=== PATIENT | female | born 1985 | race Caucasian/White ===

== ENCOUNTER 2020-05-22 10:01 | Inpatient (IN) | payer OTHER, SELFPAY ==
[2020-05-22] VITALS (71 sets, daily range): BP systolic 97–139; BP diastolic 46–102; PULSE 50–86; RESP 14–19; TEMP 36.1–37.3; O2SAT 98–100; BMI 30.2
--- NOTE | 2020-05-22 10:01 | LDADM ---
This patient, Stephanie Adamson, was admitted to Labor/Delivery/Recovery 120 on 05/22/20 at 10:01. Plans for section, pain management and were discussed with patient. Patient/family oriented to hospital policies and general routines including ID bracelet, bed and alarms, visiting hours, pain management, procedures, bathroom and other care routines, personal items, smoking policy, room service/diet and guest tray routines, security routines, and visiting hours. Patient/Family are encouraged to report perceived risks to care and to ask questions if they do not understand what they are told or what they should do. See OBIX for further documentation.
[2020-05-22] MEDS: LACTATED RINGERS 1,000 ML 125 ML IV CONT ×2 (10:50→13:27)
[2020-05-22 10:57] LABS: Basophils Absolute Auto 0.1 K/mm3 (0.0-0.1); Basophils Percent Auto 0.6 % (0.2-1.2); Eosinophils Absolute Auto 0.1 K/mm3 (0-0.3); Hematocrit 38.1 % (37.0-47.0); Hemoglobin 12.7 g/dL (12.0-15.0); Immature Granulocyte Absolute 0.11 K/mm3 (0.00-0.031); Immature Granulocyte Percent A 1.2 % (0-0.5); Lymphocytes Absolute Auto 1.61 K/mm3 (0.9-3.2); Lymphocytes Percent Auto 17.2 % (18.3-44.2); Mean Corpuscular HGB Conc 33.3 g/dl (32-36); Mean Corpuscular Hemoglobin 32.6 pg (26-34); Mean Corpuscular Volume 97.9 fl (80-100); Mean Platelet Volume 9.5 fl (7.4-10.4); Monocytes Absolute Auto 0.7 K/mm3 (0.1-0.6); Monocytes Percent Auto 7.7 % (2.6-8.5); Neutrophils Absolute Auto 6.8 K/mm3 (1.3-6.7); Neutrophils Percent Auto 72.3 % (45.5-73.1); Platelet Count Result 301 k/mm3 (150-375); Red Blood Count 3.89 M/mm3 (4.2-5.4); Red Cell Distribution Width 14.4 % (11.5-14.5); White Blood Count 9.4 K/mm3 (4.5-10.0)
--- NOTE | 2020-05-22 11:20 | WPDANESEPPF ---
Anes - Initial Pre Proc Eval Procedure: Operation Date: 05/22/20 12:00 Proposed Procedures p Primary Section - Alen Vela MD Date/Time: 05/22/20 11:20 Surgeon: Alen Vela MD Pre Op Diagnosis: Section Patient Data Age: 34 Gender: F Height: Weight: Last Vital Signs Pulse 75 05/22/20 11:00 BP 122/76 05/22/20 11:00 Allergies Allergy/AdvReac Type Severity Reaction Status Date / Time No Known Allergies Allergy Verified 04/21/20 15:45 Home Medications Medication Instructions Recorded Confirmed Type ferrous sulfate 325 mg PO DAILY 04/21/20 05/22/20 History prenat.vits,dorcas,[id number] 1 tablet PO DAILY 04/21/20 05/22/20 History [ #2] Laboratory Tests 05/22/20 05/22/20 10:43 10:43 WBC 9.4 K/mm3 K/mm3 (4.5-10.0) RBC 3.89 M/mm3 L M/mm3 (4.2-5.4) Hgb 12.7 g/dL g/dL (12.0-15.0) Hct 38.1 % % (37.0-47.0) MCV 97.9 fl fl (80-100) MCH 32.6 pg pg (26-34) MCHC 33.3 g/dl g/dl (32-36) RDW 14.4 % % (11.5-14.5) Plt Count 301 k/mm3 k/mm3 (150-375) MPV 9.5 fl fl (7.4-10.4) Immature Gran % (Auto) 1.2 % H % (0-0.5) Neut % (Auto) 72.3 % % (45.5-73.1) Lymph % (Auto) 17.2 % L % (18.3-44.2) [place] % (Auto) 7.7 % % (2.6-8.5) Eos % (Auto) 1.0 % % (0-4.4) Baso % (Auto) 0.6 % % (0.2-1.2) Lymph # (Auto) 1.61 K/mm3 K/mm3 (0.9-3.2) [place] # (Auto) 0.7 K/mm3 H K/mm3 (0.1-0.6) Eos # (Auto) 0.1 K/mm3 K/mm3 (0-0.3) Baso # (Auto) 0.1 K/mm3 K/mm3 (0.0-0.1) Abs Immat Gran (auto) 0.11 K/mm3 H K/mm3 (0.00-0.031) Absolute Neuts (auto) 6.8 K/mm3 H K/mm3 (1.3-6.7) Absolute Nucleated RBC 0.0 K/mm3 K/mm3 (0.0-0.012) Nucleated RBC % 0.0 % % (0.0-0.2) RPR Pending Patient hx anesthesia problems: none Family hx anesthesia problems: none [facility] Surgical History Surgical History (Updated 05/22/20 @ 11:21 by Mateo Quevedo MD) H/O breast augmentation History of appendectomy Family History Family History Mother Patient's mother is in good health Family history of thyroid disease Grandparent Family history of malignant neoplasm of breast Family history of malignant neoplasm of breast in first degree relative, Onset Age: 80 Family history of thyroid disease Social History Social History Smoking status: Former smoker Tobacco type: cigarettes Second hand tobacco smoke exposure: No Smoking end date: 02/17/05 Alcohol intake: never Substance use: never Spiritual care concerns: No Anes - Eval Final PreProcedure Day of Procedure 05/22/20 11:20 Patient weight: overweight Heart: regular rate and rhythm Lungs: clear to auscultation Airway: Mallampati scale class II Neurological: alert and oriented Last oral intake: >/= 8 hours ASA classification: II Emergent: no Anesthetic plan: proceed Anesthesia type and monitoring: regional spinal and standard monitoring Informed Consent: The patient's anesthetic plan and its attendant risks and benefits were discussed with the patient/family/POA. Questions were solicited and answers provided to the satisfaction of the patient/family/POA.
--- NOTE | 2020-05-22 12:23 | WPDHPUPDATE1 ---
History and Physical Update Update Date/Time: 05/22/20 12:23 History and Physical has been reviewed, including an updated exam of the patient. There are NO changes in the patient's condition. Risks, benefits, and alternatives have been discussed and questions answered. Patient agrees to proceed with procedure.
--- NOTE | 2020-05-22 12:23 | PM.IMHP ---
H&P: HPI History of Present Illness Date/Time: 05/22/20 12:23 this patient is a 34-year-old female presents for delivery. She has a term and breech position. She has no complaints. She denies any contractions, loss of fluid, vaginal bleeding. She denies any headache, blurry vision, epigastric pain. She denies any chest pain or shortness of breath she denies any nausea, vomiting, fever, chills. Chief Complaint: Term , breech Review of Systems Constitutional: Constitutional: Reports no additional constitutional complaints, Denies fatigue, Denies headache(s), Denies lethargy and Denies weakness Eyes: Eyes: Reports no additional eye complaints, Denies blurry vision and Denies photophobia ENT: Reports as per HPI, Denies headache(s) and Denies neck pain Cardiovascular: Cardiovascular: Denies chest pain, Denies diaphoresis, Denies leg edema, Denies palpitations and Denies dyspnea Respiratory: Respiratory: Denies hemoptysis, Denies dyspnea and Denies wheezing Gastrointestinal: Gastrointestinal: Denies abdominal pain, Denies melena, Denies bloating, Denies hematochezia, Denies nausea and Denies vomiting Genitourinary: Genitourinary: Reports no additional female genitourinary complaints Musculoskeletal: Musculoskeletal: Denies joint swelling, Denies neck pain, Denies numbness and Denies stiffness Neurologic: Denies Abnormal speech present, Denies confusion, Denies headache(s), Denies numbness and Denies weakness Psychiatric: Psychiatric: Denies anxiety, Denies confusion, Denies depression, Denies homicidal ideation and Denies suicidal ideation Endocrine: Endocrine: Denies fatigue and Denies palpitations Allergic/Immunologic: Allergic/Immunologic: Denies wheezing [facility] Surgical History Surgical History (Updated 05/22/20 @ 11:21 by Mateo Quevedo MD) H/O breast augmentation History of appendectomy Family History Family History Mother Patient's mother is in good health Family history of thyroid disease Grandparent Family history of malignant neoplasm of breast Family history of malignant neoplasm of breast in first degree relative, Onset Age: 80 Family history of thyroid disease Social History Social History Smoking status: Former smoker Tobacco type: cigarettes Second hand tobacco smoke exposure: No Smoking end date: 02/17/05 Alcohol intake: never Substance use: never Spiritual care concerns: No Meds Home Medications and Allergies Home Medications Medication Instructions Recorded Confirmed Type ferrous sulfate 325 mg PO DAILY 04/21/20 05/22/20 History prenat.vits,dorcas,qwd-rmhh-mdoft 1 tablet PO DAILY 04/21/20 05/22/20 History [ #2] Allergies Allergy/AdvReac Type Severity Reaction Status Date / Time No Known Allergies Allergy Verified 04/21/20 15:45 Vital Signs Vital Signs - 24 hr 05/22/20 10:50 05/22/20 11:00 Temperature 99.1 F Pulse Rate 83 75 Respiratory Rate 18 Blood Pressure 126/70 122/76 Exam Const: General: healthy appearing, comfortable and no acute distress; No confusion Orientation/consciousness: No confusion Eyes: Direct Ophthalmoscopy: No photophobia Resp: Auscultation: clear to auscultation bilaterally, no rales, no rhonchi and no wheezes Cardio: Rate: regular rate Heart sounds: no click, no murmurs and no rubs GI: Inspection: non-distended GI Palp: No abdominal tenderness Auscultation: normal bowel sounds Neuro: General: No confusion Speech: No Abnormal speech present Extrem: General: normal to inspection, no pedal edema and no calf tenderness H&P: Results Labs Labs: Short CBC 05/22/20 Range/Units 10:43 WBC 9.4 (4.5-10.0) K/mm3 Hgb 12.7 (12.0-15.0) g/dL Hct 38.1 (37.0-47.0) % Plt Count 301 (150-375) k/mm3 Assessment and Plan Assessment and plan (1) Term pregn
--- NOTE | 2020-05-22 13:23 | PM.PROC ---
Procedure Note - Detailed Date of procedure: 05/22/20 Pre-op diagnosis: Section Unwanted fertility Post-op diagnosis: same Procedure performed: Repeat low-transverse delivery, tubal ligation/fimbriectomy/fimbriectomy. Description of procedure: The patient was taken the operating room. She was prepped and draped in the dorsal supine position with leftward tilt after induction of spinal anesthetic. When anesthesia was found to be adequate a low-transverse skin incision was made and carried down to the level the fascia with the knife. The fascial incision was made at the midline with a scalpel. The fascial incision was extended laterally with Parra scissors. The fascia was tented upward superior and inferior with Addis clamps. The rectus muscles were dissected off bluntly. The rectus muscles at the midline. The preperitoneal fat was dissected bluntly at the superior aspect of the separate the rectus muscles. The peritoneal cavity was entered bluntly in the same area. The peritoneal incision was extended superior and inferior with good position of bladder. Bladder blade was inserted. A low-transverse incision was made on the uterus with the scalpel. It was carried down the level of the amniotic cavity with a knife. The amniotic cavity bluntly. The uterine incision was made laterally with blunt traction. The was delivered. The cord was clamped and cut. The infant was handed off to waiting pediatric staff. Cord bloods were obtained. The placenta was removed manually. The uterus was exteriorized. Uterus cleared of all clots and debris. Uterus closed in 0 Vicryl in a running locked fashion. An imbricating layer of 0 Vicryl was also placed on the to bolster the closure. Fallopian tube was grasped in the ampullary region with a Emily. It was raised away from the accompanying vein. A window was created in the broad ligament in this area of the tube. 0 Vicryl was used to ligate the proximal distal ends of the skeletonize region of the tube. The segment of the tube was resected with scissors. The cut surfaces were cauterized. The distal half of the tube was then removed using clamps and 0 Vicryl ties. On the contralateral side the procedure was performed identically. The uterus was returned to the abdomen. The gutters were cleared of all clots and debris. The fascia was closed 0 Vicryl in a running fashion. Subcutaneous tissue was irrigated and bleeding areas were cauterized. The skin was closed with subcuticular for Monocryl. The incision was covered with derma fox. The patient tolerated the procedure well. She was taken recovery room stable condition. Sponge, lap, needle counts were correct x2. Anesthesia: spinal Surgeon: Alen Vela MD Estimated blood loss (mL): 210 Drains: No Packing: No Pathology: none sent Complications: No immediate complications Condition: stable Disposition: floor Findings: Normal maternal anatomy. Average size infant with normal Apgars.
[2020-05-22] MEDS: OXYTOCIN 30 UNITS/NS 500 ML 30 UNITS/500 ML BAG 125 UNITS IV CONT (14:37)
[2020-05-22] MEDS: fentaNYL CITRATE INJ (*CRX) 100 MCG/2 ML VIAL 25 MCG IV PUSH (15:26)
--- NOTE | 2020-05-22 16:00 | OBPPTRN ---
Patient transferred to post room # 286 via stretcher. Support person present. Oriented to unit, room, information board, rooming in, admission packet and security measures. Patient verbalizes understanding.
--- NOTE | 2020-05-22 16:00 | PC.NURSE ---
Patient transferred to room. Report given to Sandy Nogueira RN.
[2020-05-22] MEDS: KETOROLAC 30 MG/ML VIAL (*BKC) IV PUSH (16:48)
[2020-05-22] MEDS: IBUPROFEN 600 MG TABLET PO (22:16)
[2020-05-22] MEDS: HYDROcodone/acetaminophen (*CRX) 5-325 MG TABLET 1 TAB PO (22:17)
[2020-05-23] MEDS: HYDROcodone/acetaminophen (*CRX) 5-325 MG TABLET 1 TAB PO ×2 (00:04→11:47)
[2020-05-23] MEDS: SIMETHICONE 80 MG TAB.CHEW PO ×5 (05:17→21:22)
[2020-05-23] MEDS: HYDROcodone/acetaminophen (*CRX) 10-325 MG TABLET 1 TAB PO ×4 (05:17→21:22)
[2020-05-23] MEDS: IBUPROFEN 600 MG TABLET PO ×3 (05:18→16:57)
[2020-05-23 05:30] VITALS: BP 106/74; PULSE 65; RESP 16; TEMP 36.7
[2020-05-23 05:51] LABS: Basophils Absolute Auto 0.1 K/mm3 (0.0-0.1); Basophils Percent Auto 0.5 % (0.2-1.2); Eosinophils Absolute Auto 0.1 K/mm3 (0-0.3); Eosinophils Percent Auto 0.9 % (0-4.4); Hematocrit 34.9 % (37.0-47.0); Hemoglobin 11.2 g/dL (12.0-15.0); Immature Granulocyte Absolute 0.08 K/mm3 (0.00-0.031); Immature Granulocyte Percent A 0.7 % (0-0.5); Lymphocytes Absolute Auto 1.67 K/mm3 (0.9-3.2); Lymphocytes Percent Auto 15.2 % (18.3-44.2); Mean Corpuscular HGB Conc 32.1 g/dl (32-36); Mean Corpuscular Hemoglobin 31.5 pg (26-34); Mean Corpuscular Volume 98.3 fl (80-100); Mean Platelet Volume 9.9 fl (7.4-10.4); Monocytes Absolute Auto 0.6 K/mm3 (0.1-0.6); Monocytes Percent Auto 5.5 % (2.6-8.5); Neutrophils Absolute Auto 8.5 K/mm3 (1.3-6.7); Neutrophils Percent Auto 77.2 % (45.5-73.1); Platelet Count Result 263 k/mm3 (150-375); Red Blood Count 3.55 M/mm3 (4.2-5.4); Red Cell Distribution Width 14.2 % (11.5-14.5)
--- NOTE | 2020-05-23 07:35 | WPDANLDPN2 ---
Anes-Prog Note L&D Date/Time: 05/23/20 07:35 Comfortable throughout: section Neuraxial method: spinal Epidural/Spinal procedure site: clean & non-tender Neuro status: Neuro function grossly intact. Cardiovascular status: normal Respiratory status: normal Airway patency: baseline Mental status: baseline Post-Op hydration status: normal Vital Signs: Last Vital Signs Temp 36.7 C 05/23/20 05:30 Pulse 65 05/23/20 05:30 Resp 16 05/23/20 05:30 BP 106/74 05/23/20 05:30 Pulse Ox 100 05/22/20 15:58 Pain score (VAS): 3 I/O: Intake & Output 05/22/20 05/22/20 05/23/20 15:59 23:59 07:59 Intake Total 5698 326 9858 Output Total 903 529 6108 Balance 623 120 -1200 Post-procedural complaints: none Patient feedback: Patient satisfied with anesthetic care.
--- NOTE | 2020-05-23 07:35 | WPDANLDNPN2 ---
Anes-Prog Note L&D-Neuraxial Date/Time: 05/23/20 07:35 Neuraxial medications: intrathecal PF morphine Opiod-related complaints: none Patient feedback: Patient satisfied with post-operative pain management.
--- NOTE | 2020-05-23 07:50 | PM.OBPNVD ---
OB - PN: Subj Subjective Date/time seen: 05/23/20 07:50 Patient comments: no complaints, pain well controlled, tolerating diet and flatus present [place] baby status: doing well OB - PN: Obj Data Labs CBC & Chem 7: 05/23/20 05:26 Labs: Laboratory Results - last 24 hr 05/22/20 05/22/20 05/23/20 10:43 10:43 05:26 WBC 9.4 11.0 H RBC 3.89 L 3.55 L Hgb 12.7 11.2 L Hct 38.1 34.9 L MCV 97.9 98.3 MCH 32.6 31.5 MCHC 33.3 32.1 RDW 14.4 14.2 Plt Count 301 263 MPV 9.5 9.9 Immature Gran % (Auto) 1.2 H 0.7 H Neut % (Auto) 72.3 77.2 H Lymph % (Auto) 17.2 L 15.2 L [place] % (Auto) 7.7 5.5 Eos % (Auto) 1.0 0.9 Baso % (Auto) 0.6 0.5 Lymph # (Auto) 1.61 1.67 [place] # (Auto) 0.7 H 0.6 Eos # (Auto) 0.1 0.1 Baso # (Auto) 0.1 0.1 Abs Immat Gran (auto) 0.11 H 0.08 H Absolute Neuts (auto) 6.8 H 8.5 H Absolute Nucleated RBC 0.0 0.0 Nucleated RBC % 0.0 0.0 Blood Type A Positive Antibody Screen Negative OB - PN A/P Plan day: 1 Plan: routine care Time Spent With Patient Time: Total time spent is greater than 50% in coordination of care (as documented) at patient's floor/unit and/or counseling patient: Time with patient: less than 15 minutes Review of Systems Review of Systems: All systems reviewed & are unremarkable except as noted in HPI and below Exam Narrative: Exam Narrative: Fundus firm. Vaginal flow controlled. Incision dry and intact. Negative homans. No redness, warmth, or pain of lower ext. Const: General: comfortable Chest: Breast/axilla inspection: normal inspection of the breasts Resp: Effort & Inspection: normal respiratory effort Auscultation: clear to auscultation bilaterally Cardio: Rate: regular rate GI: GI Palp: Yes Soft to palpation Psych: Appearance: grossly normal Affect: normal affect Attitude: cooperative Thought content: Yes Normal thought content present Judgement: Good judgement present (Psych)
[2020-05-23 09:00] VITALS: BP 111/84; PULSE 85; RESP 18; TEMP 36.5
[2020-05-23] MEDS: DOCUSATE SODIUM 100 MG CAPSULE PO ×2 (09:01→16:58)
[2020-05-23 11:50] VITALS: BP 110/65; PULSE 67; PULSE 85; RESP 14; RESP 18; TEMP 36.7; O2SAT 100
[2020-05-23 13:55] LABS: Rapid Plasma Reagin Non-Reactive (NonReactive)
[2020-05-23 15:00] VITALS: BP 116/82; PULSE 84; RESP 18; TEMP 36.8
[2020-05-23 20:20] VITALS: BP 127/72; PULSE 75; PULSE 85; RESP 15; RESP 18; TEMP 36.8
[2020-05-24] MEDS: SIMETHICONE 80 MG TAB.CHEW PO ×2 (05:50→08:14)
[2020-05-24] MEDS: IBUPROFEN 600 MG TABLET PO ×2 (05:50→12:02)
--- NOTE | 2020-05-24 07:25 | PM.OBPNVD ---
OB - PN: Subj Subjective Date/time seen: 05/24/20 07:25 Patient comments: no complaints, pain well controlled, incisional pain, tolerating diet and flatus present OB - PN: Obj Data Labs CBC & Chem 7: 05/23/20 05:26 Labs: Laboratory Results - last 24 hr 05/22/20 10:43 RPR Non-reactive OB - PN A/P Plan day: 2 Plan: routine care Comments: POD#2 LTCS - no problems, to d/c Time Spent With Patient Time: Total time spent is greater than 50% in coordination of care (as documented) at patient's floor/unit and/or counseling patient: Exam Const: General: comfortable, no acute distress and alert Resp: Effort & Inspection: normal respiratory effort Auscultation: no crackles, no rales and no rhonchi Cardio: Rate: regular rate Heart sounds: no click, no murmurs and no rubs GI: Inspection: non-distended GI Palp: No Tenderness to palpation present (GI) Auscultation: normal bowel sounds Other: Incision - CDI Extrem: General: normal to inspection, no pedal edema and no calf tenderness
--- NOTE | 2020-05-24 07:26 | PM.OBDSVD ---
DS: Admitting Diagnosis Admitting Diagnosis Admitting Diagnosis: term , breech DS: Discharge Diagnosis Discharge Diagnosis (1) Term : Code(s): Z34.90 - Encounter for supervision of normal , unspecified, unspecified trimester Status: Acute (2) Breech presentation: Code(s): O32.1XX0 - Maternal care for breech presentation, not applicable or unspecified Status: Acute (3) delivery delivered: Code(s): O82 - Encounter for delivery without indication Status: Acute OB - DS: Summary OB Procedures : None OB Procedures Intrapartum: OB Procedures: : None Peripartum Data Delivery Method: Section Procedures: Procedures Operation Date: 05/22/20 12:00 Actual Procedures Side Surgeon p Section Not Applicable Alen Vela MD Time Spent with Patient Time attestation: Total time spent providing and/or coordinating discharge services: DS: Data Data Completed and Pending Pending studies at discharge: Pending at discharge 05/22/20 13:05 Surgical [PTH] Routine Labs on day of discharge: Labs from last 24 hours 05/22/20 10:43 RPR Non-reactive Discharge Plan Discharge Discharging Clinician: Alen Vela Patient Disposition: Home, Self-Care Activity: pelvic rest Diet: regular Patient Instructions: Antibiotic Form Stand Alone Forms: General Discharge Information Follow-up/Referrals: Alen Vela MD [Physician] - Discharge Medications: New hydrocodone-acetaminophen 5-325 mg tablet 1 - 2 tablet PO Q4H PRN (Reason: pain) Qty: 25 RF: 0 Continued ferrous sulfate 325 mg (65 mg iron) Tablet,Delayed Release (Dr/Ec) 325 mg PO DAILY RF: 0 #2 Tablet 1 tablet PO DAILY RF: 0 Date of admission: 05/22/20 10:01 Primary Care Provider: Ash,Marjan Rowell Admitting Provider: Alen Vela Attending physician on admission: Alen Vela Condition: Stable
[2020-05-24 08:00] VITALS: BP 107/69; PULSE 82; RESP 18; RESP 20; TEMP 37.1
[2020-05-24] MEDS: HYDROcodone/acetaminophen (*CRX) 10-325 MG TABLET 1 TAB PO (08:14)
[2020-05-24] MEDS: DOCUSATE SODIUM 100 MG CAPSULE PO (08:15)
--- NOTE | 2020-05-24 10:52 | PC.NURSE ---
Self care and infant care discharge instructions given to patient, including f/u visit date and time. Patient V/U. No concerns voiced. FOB at side.
--- NOTE | 2020-05-24 10:53 | PC.NURSE ---
Patient was given the opportunity to view the discharge video Mother & Baby Care, The First Two Weeks and to ask questions. Patient declined viewing the video and has been given the mother/baby guide for home reference.
[2020-05-24] MEDS: HYDROcodone/acetaminophen (*CRX) 5-325 MG TABLET 1 TAB PO (12:02)
[2020-05-26 11:18] VITALS: BP 131/77; PULSE 71; RESP 20; TEMP 36.9; O2SAT 100
== END 2020-05-24 12:10 | disposition home or self-care (01) | DRG 785 ==
LOC: ANHLDR 10:05 → ANHOB2 16:04
PROVIDERS: Admitting Provider Obstetrics & Gynecology; PCP Family Medicine; Visit Provider Obstetrics & Gynecology
PROC: 10D00Z1 Extraction of Products of Conception, Low, Open Approach (ICD-10-PCS; CPT 59514; principal; 2020-05-22 12:00)
DX: O32.1XX0 Maternal care for breech presentation, not applicable or unspecified (principal); Z37.0 Single live birth; Z3A.39 39 weeks gestation of pregnancy; Z30.2 Encounter for sterilization
CPT/HCPCS: 36415; 85025; 86592; 86850; 86900; 86901; 88302; A9270; J0131; J1885; J2274; J2590; J3010; J7120

== ENCOUNTER → 2020-07-18 14:01 | Outpatient (CLI) | payer OTHER, SELFPAY ==
--- NOTE | ~2020-07-18 | XR_ITS ---
XR wrist LT min 3V DATE: 07/18/2020 14:14 INDICATION: Left wrist pain, lateral lumpy TECHNIQUE: 4 views COMPARISON: None FINDINGS: There is focal soft tissue swelling at the lateral aspect of the wrist with nearby chronic mild scalloping of the lateral radial epiphyseal cortex. Findings suggest a long-standing benign soft tissue lesion. No fracture, dislocation, periosteal reaction or bone destruction. IMPRESSION: Lateral wrist soft tissue mass with adjacent chronic benign scalloping of the lateral rad ial metaphyseal cortex Reviewed, dictated and finalized at location A. IMPRESSION: Lateral wrist soft tissue mass with adjacent chronic benign scallop ing of the lateral radial metaphyseal cortex
== END ==
PROVIDERS: PCP Nurse Practitioner Family; Visit Provider Nurse Practitioner Family
DX: M79.89 Other specified soft tissue disorders (principal)
CPT/HCPCS: 73110

== ENCOUNTER → 2020-08-14 15:16 | Outpatient (REF) | payer OTHER, SELFPAY | LOC: ANHLAB 15:16 | PROVIDERS: PCP Family Medicine; Visit Provider Nurse Practitioner | DX: D22.5 Melanocytic nevi of trunk (principal); D22.62 Melanocytic nevi of left upper limb, including shoulder | CPT/HCPCS: 88305 ==

== ENCOUNTER 2022-01-25 08:00 | Outpatient (NON) | payer OTHER, SELFPAY | END 2022-01-25 08:01 | disposition home or self-care (01) | LOC: ANHLAB 01-28 10:05 | PROVIDERS: PCP Family Medicine; Visit Provider Surgery Plastic and Reconstructive Surgery | DX: Z45.819 Encounter for adjustment or removal of unspecified breast implant (principal) | CPT/HCPCS: 88304 ==

== ENCOUNTER 2022-01-25 09:04 | Day surgery (SDC) | payer OTHER, SELFPAY ==
[2022-01-18 13:09] VITALS: BMI 20.3
[2022-01-25] VITALS (7 sets, daily range): BP systolic 113–126; BP diastolic 74–83; PULSE 80–100; RESP 14–22; TEMP 37.1–37.3; O2SAT 100; BMI 20.1
--- NOTE | 2022-01-25 07:07 | WPDANESEPPF ---
Anes - Initial Pre Proc Eval Procedure: Operation Date: 01/25/22 10:30 Proposed Procedures p Bilateral Breast Implant Exchange - Aldo Montano MD Date/Time: 01/25/22 07:07 Surgeon: Aldo Montano MD Pre Op Diagnosis: History of Breast Augmentation Patient Data Age: 36 Gender: F Height: 1.6 m Weight: 52.163 kg Allergies Allergy/AdvReac Type Severity Reaction Status Date / Time No Known Allergies Allergy Verified 01/25/22 09:29 Patient hx anesthesia problems: none Family hx anesthesia problems: none Results Review: All pre-operative results and documents have been reviewed as part of the pre-operative evaluation. PMFSH Past Medical History Medical History (Updated 01/25/22 @ 07:07 by Claude Randle DO) Anemia Surgical History Surgical History (Updated 01/25/22 @ 07:07 by Claude Randle DO) H/O breast augmentation History of appendectomy History of tubal ligation Hx of section (~05/2020) Family History Family History Mother Patient's mother is in good health Family history of thyroid disease Grandparent Family history of malignant neoplasm of breast Family history of malignant neoplasm of breast in first degree relative, Onset Age: 80 Family history of thyroid disease Social History Social History Social History: , 2 children. part time flexible clerk replenishment specialist. Smoking status: Never smoker Tobacco type: cigarettes Second hand tobacco smoke exposure: No Smoking end date: 02/17/05 Alcohol intake: never Alcohol use details: socially Substance use: never Living arrangements: with family Spiritual care concerns: No Anes - Eval Final PreProcedure Day of Procedure 01/25/22 07:07 Patient weight: normal Heart: regular rate and rhythm Lungs: clear to auscultation and normal air movement Airway: Mallampati scale class II Neurological: alert and oriented Last oral intake: >/= 8 hours ASA classification: II Emergent: no Anesthetic plan: proceed Anesthesia type and monitoring: general LMA and standard monitoring Results Review: All pre-operative results and documents have been reviewed as part of the pre-operative evaluation. Informed Consent: The patient's anesthetic plan and its attendant risks and benefits were discussed with the patient/family/POA. Questions were solicited and answers provided to the satisfaction of the patient/family/POA.
[2022-01-25] MEDS: LACTATED RINGERS 1,000 ML 30 ML IV CONT (09:45)
--- NOTE | 2022-01-25 10:17 | SUR.PREOP ---
FEMALE STAFF IN ROOM WHILE MARKED PT. PT'S MOTHER AT BEDSIDE ALSO.
--- NOTE | 2022-01-25 10:22 | WPDHPUPDATE1 ---
History and Physical Update Update Date/Time: 01/25/22 10:22 History and Physical has been reviewed, including an updated exam of the patient. There are NO changes in the patient's condition. Risks, benefits, and alternatives have been discussed and questions answered. Patient agrees to proceed with procedure.
--- NOTE | 2022-01-25 10:22 | W.PM.PROC2 ---
Procedure Note - Detailed Date of Procedure 01/25/22 Pre-op Diagnosis History of Breast Augmentation Post-op Diagnosis Same Procedure Performed Bilateral implant exchange with adjustment of left fold and bilateral Galaflex Surgeon Aldo Montano MD Anesthesia General Findings Previous implants: HP-380 saline New implants bilateral Natrelle SoftTouch 420cc implants Right - REF# [id number]-[id number] SN [id number] Left - REF# [id number] SN [id number] Description of Procedure Preoperatively the risks, benefits, alternatives were discussed in extensive detail. I wanted to be very realistic about the risks involved as well as expectations. I was clear about how we could actually make her worse. 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 She understands this could recur. Answered all questions to satisfaction. Voiced a clear understanding. Consent obtained. She was taken the operating room placed supine on the operating room table. Anesthesia provided by anesthesiology and prepped and draped in a standard sterile fashion. Surgical time-out was taken. 1% lidocaine and 0.25% Marcaine with epinephrine was used to provide a field block. Tegaderm nipple pantoja were placed. Fifteen blade used to excise the previous IMF scars. Dissection was continued down until the capsules were identified and excised a significant portion of the capsule which was sent to pathology. I then copiously irrigated with 3 L of saline solution on TUR tubing. Verified strict hemostasis. Bilateral lateral and left inferior popcorn capsulorraphy was completed as needed for symmetry. I also closed along the left IMF with 2-0 Vicryl. I then irrigated with Betadine containing solution. Using a no-touch technique and a Burkett funnel the implant was introduced into the pocket. The Galaflex was soaking in Betadine solution on the back table. It was trimmed and placed along bilateral IMF. This was closed with 2-0 Vicryl followed by 3-0 Monocryl and a running subcuticular 4-0 Monocryl followed by tissue glue. Dressings were placed. She was woken taken to the PACU without difficulty. All instrument sponge counts were correct at the end of the case. Estimated Blood Loss 20 Drains No Packing No Pathology Yes (Bilateral breast capsules) Complications No immediate complications Condition Stable Disposition PACU
[2022-01-25] MEDS: ceFAZolin SODIUM 2 GM/20 ML SW SYRINGE IV PUSH (10:43)
[2022-01-25] MEDS: BUPIVACAINE HCL 0.25% 50 ML VIAL INFILTRATE (11:00)
[2022-01-25] MEDS: NACL 0.9% IRRIG POUR BOTTLE 900 ML, GENTAMICIN SULFATE INJ 160 MG, ceFAZolin 2 GM, POVI... IRRIGATION (11:11)
[2022-01-25] MEDS: LIDO 1%/EPINEPHRINE 1:100,000 20 ML VIAL 40 ML INFILTRATE (11:14)
[2022-01-25] MEDS: ONDANSETRON INJ 4 MG/2 ML VIAL IV PUSH (12:42)
--- NOTE | 2022-01-25 13:51 | WPDANESPN ---
Anes - Prog Note Post-Op Date/Time: 01/25/22 13:51 Vital Signs: Last Vital Signs Temp 37.1 C 01/25/22 12:13 Pulse 86 01/25/22 13:21 Resp 14 01/25/22 13:21 BP 116/81 01/25/22 13:21 Pulse Ox 100 01/25/22 13:21 O2 Del Method Room Air 01/25/22 13:21 O2 Flow Rate 5 01/25/22 12:13 Pain Score (VAS): 2 I/O: Intake & Output 01/24/22 01/25/22 01/25/22 23:59 07:59 15:59 Intake Total 100 Balance 100 Patient Feedback: Patient satisfied with anesthetic care.
== END 2022-01-25 13:51 | disposition home or self-care (01) ==
PROVIDERS: PCP Family Medicine; Visit Provider Surgery Plastic and Reconstructive Surgery
PROC: (CPT 19342; principal; 2022-01-25 10:30)
DX: Z41.1 Encounter for cosmetic surgery (principal)
CPT/HCPCS: 19342

== ENCOUNTER 2022-07-30 09:00 | Outpatient (NON) | payer OTHER, SELFPAY | END 2022-07-30 09:01 | disposition home or self-care (01) | LOC: ANHLAB 07-31 16:05 | PROVIDERS: PCP Family Medicine; Visit Provider Nurse Practitioner | DX: D49.2 Neoplasm of unspecified behavior of bone, soft tissue, and skin (principal) | CPT/HCPCS: 88305 ==

== ENCOUNTER 2023-09-05 08:32 | Outpatient (CLI) | payer OTHER, SELFPAY ==
[2023-09-05 18:43] LABS: Basophils Absolute Auto 0.1 K/mm3 (0.0-0.1); Basophils Percent Auto 1.6 % (0.2-1.2); Eosinophils Absolute Auto 0.2 K/mm3 (0-0.3); Eosinophils Percent Auto 3.5 % (0-4.4); Hematocrit 39.9 % (37.0-47.0); Hemoglobin 12.8 g/dL (12.0-15.0); Immature Granulocyte Absolute 0.01 K/mm3 (0.00-0.031); Immature Granulocyte Percent A 0.2 % (0-0.5); Lymphocytes Absolute Auto 1.61 K/mm3 (0.9-3.2); Lymphocytes Percent Auto 33.2 % (18.3-44.2); Mean Corpuscular HGB Conc 32.1 g/dl (32-36); Mean Corpuscular Hemoglobin 31.4 pg (26-34); Mean Platelet Volume 9.2 fl (7.4-10.4); Monocytes Absolute Auto 0.4 K/mm3 (0.1-0.6); Monocytes Percent Auto 8.7 % (2.6-8.5); Neutrophils Absolute Auto 2.6 K/mm3 (1.3-6.7); Neutrophils Percent Auto 52.8 % (45.5-73.1); Platelet Count Result 370 k/mm3 (150-375); Red Blood Count 4.07 M/mm3 (4.2-5.4); Red Cell Distribution Width 12.7 % (11.5-14.5); White Blood Count 4.9 K/mm3 (4.5-10.0)
[2023-09-05 19:05] LABS: Alanine Aminotransferase 16 U/L (6-35); Albumin Level 4.7 g/dL (3.5-5.1); Alkaline Phosphatase 36 U/L (38-126); Anion Gap 11 mmol/L (4-12); Aspartate Amino Transferase 31 U/L (14-36); Blood Urea Nitrogen 12 mg/dL (7-17); Calcium 9.2 mg/dL (8.4-10.2); Carbon Dioxide 26 mmol/L (22-30); Chloride 101 mmol/L (98-107); Cholesterol 162 mg/dL (0-200); Estimated Glomerular Filt Rate > 60; Glucose 81 mg/dL (65-110); HDL Direct 76 mg/dL; Potassium 3.9 mmol/L (3.4-5.0); Sodium 138 mmol/L (137-145); Triglycerides 47 mg/dL (<150)
[2023-09-05 19:17] LABS: LDL Cholesterol Direct 78 mg/dL
[2023-09-05 19:23] LABS: Hemoglobin A1C 5.4 % (<5.7)
[2023-09-05 19:46] LABS: Vitamin D 25 Hydroxy 33.5 ng/mL
== END 2023-09-05 08:33 | disposition home or self-care (01) ==
LOC: ANHGOSHLAB 08:33
PROVIDERS: PCP Family Medicine; Visit Provider Nurse Practitioner Family
DX: R73.03 Prediabetes (principal); Z00.00 Encounter for general adult medical examination without abnormal findings; E55.9 Vitamin D deficiency, unspecified; Z13.29 Encounter for screening for other suspected endocrine disorder; E53.8 Deficiency of other specified B group vitamins
CPT/HCPCS: 36415; 80053; 80061; 82306; 82607; 83036; 84443; 85025

== ENCOUNTER 2024-06-09 13:18 | Outpatient (CLI) | payer OTHER, SELFPAY ==
--- NOTE | ~2024-06-09 | MM_ITS ---
EXAMINATION: MM scrn chanell implant BI w mirlande HISTORY: Screening mammogram TECHNIQUE: Craniocaudal and mediolateral oblique 3-D tomosynthesis images with implant displacement a nd synthetic 2-D images were generated. Craniocaudal and mediolateral oblique views of the breasts wi thout implant displacement were obtained using full field digital mammography. CAD analysis was submi tted and interpreted. COMPARISON: No prior mammogram is available for comparison at this institution. BREAST PARENCHYMAL COMPOSITION: Dense: The breasts are heterogeneously dense, which may obscure small masses FINDINGS: There is no evidence of suspicious mass, calcification, or architectural distortion to sugg est malignancy in either breast. There has been no suspicious interval change. IMPRESSION: 1. No mammographic evidence of malignancy. 2. Recommend routine screening mammography in one year. BI-RADS Category 1: Negative Reviewed, dictated and finalized at location A.
== END 2024-06-09 13:19 | disposition home or self-care (01) ==
LOC: MICIMG 13:18
PROVIDERS: PCP Nurse Practitioner Family; Visit Provider Nurse Practitioner Family
DX: Z12.31 Encounter for screening mammogram for malignant neoplasm of breast (principal)
CPT/HCPCS: 77063; 77067